=== PATIENT | female | born 1955 | race American Indian/Alaskan Native ===

== ENCOUNTER 2020-06-23 12:31 | Emergency (ER) | payer OTHER ==
[2020-06-23] MEDS ORDERED: ACETAMINOPHEN 325 MG TAB ONE (12:38)
[2020-06-23] MEDS ORDERED: ACETAMINOPHEN 325 MG TAB PO ONE (12:39)
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
[2020-06-23 19:12] VITALS: BP 192/93
== END 2020-06-23 17:19 | disposition home or self-care (01) ==
LOC: ED 12:31
DX: S00.93XA Contusion of unspecified part of head, initial encounter (principal); S69.91XA Unspecified injury of right wrist, hand and finger(s), initial encounter; I10 Essential (primary) hypertension; Z79.899 Other long term (current) drug therapy; V49.49XA Driver injured in collision with other motor vehicles in traffic accident, initial encounter; Y93.89 Activity, other specified; Y92.488 Other paved roadways as the place of occurrence of the external cause; Y99.8 Other external cause status
CPT/HCPCS: 70450; 72125

== ENCOUNTER 2020-06-25 13:35 | Emergency (ER) | payer MEDICARE ==
[2020-06-25 13:53] VITALS: BP 163/93
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
[2020-06-25] MEDS ORDERED: TETRACAINE 0.5% OPHTH SOLN 4ML OD ONE (14:58)
[2020-06-25] MEDS ORDERED: FLUORESCEIN 1 MG STRIP OP ONE (14:58)
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
== END 2020-06-25 15:48 | disposition home or self-care (01) ==
LOC: ED 13:35
DX: S00.93XA Contusion of unspecified part of head, initial encounter (principal); R22.0 Localized swelling, mass and lump, head; I10 Essential (primary) hypertension; Z79.2 Long term (current) use of antibiotics; Z79.899 Other long term (current) drug therapy; V49.49XA Driver injured in collision with other motor vehicles in traffic accident, initial encounter; W22.10XA Striking against or struck by unspecified automobile airbag, initial encounter; Y93.89 Activity, other specified; Y92.410 Unspecified street and highway as the place of occurrence of the external cause; Y99.8 Other external cause status
CPT/HCPCS: 70486